=== PATIENT | male | born 1985 | race Hispanic/Latino ===

== ENCOUNTER 2021-02-10 18:03 | Emergency (ER) | payer OTHER, SELFPAY ==
--- OUTSIDE RECORDS SUMMARY | 2021-02-10 18:08 | XMS REPORT | Continuity of Care Document ---
:1985 Author Organization [facility] t Address [address] [place] [address] Dr. Daly [address] [place] [id number] Care Team Providers Name Role Phone Unavailable Unavailable Unavailable Problems This patient has no known problems. Allergies, Adverse Reactions, Alerts This patient has no known allergies or adverse reactions. Medications This patient has no known medications. Procedures This patient has no known procedures. Results This patient has no known results.
--- NOTE | 2021-02-10 21:45 | ER ---
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 lac on back of head. Bleeding controlled. Denies LOC. Coronavirus screen: Client denies travel out of the [place] in the last 14 days. Client presents with at least one sign or symptom that may indicate coronavirus-19. Ebola Screen: Patient negative for fever greater than or equal to 101.5 degrees Fahrenheit, and additional compatible Ebola Virus Disease symptoms Patient denies exposure to infectious person. Patient denies travel to an Ebola-affected area in the 21 days before illness onset. No symptoms or risks identified at this time. Initial Sepsis Screen: Does the patient meet any 2 criteria? No. Patient's initial sepsis screen is negative. Does the patient have a suspected source of infection? No. Patient's initial sepsis screen is negative. Risk Assessment: Do you want to hurt yourself or someone else? Patient reports no desire to harm self or others. Onset of symptoms was February 10, 2021. 18:24 Method Of Arrival: Ambulatory ca1 18:24 Acuity: JOSE ALEJANDRO 4 ca1 21:21 Complicating Factors: There are no complicating factors for this patient. zb Triage Assessment: 21:21 General: Behavior is calm, cooperative, appropriate for age. zb Historical: - Allergies: 18:26 No Known Allergies; ca1 - Home Meds: 18:26 None [Active]; ca1 - PMHx: 18:26 None; ca1 - PSHx: 18:26 None; ca1 - Immunization history:: Last tetanus immunization: < 5 years ago Flu vaccine is not up to date. - Social history:: Smoking status: Patient reports the use of cigarette tobacco products, smokes one-half pack cigarettes per day. - Family history:: not pertinent. Screenin:20 Abuse screen: Denies threats or abuse. Denies injuries from another. Nutritional zb screening: No deficits noted. Tuberculosis screening: No symptoms or risk factors identified. Fall Risk None identified. Assessment: 21:16 General: Appears in no apparent distress. comfortable. Pain: Complains of pain in right zb parietal area Pain does not radiate. Pain currently is 2 out of 10 on a pain scale. Neuro: Level of Consciousness is awake, alert, obeys commands, Oriented to person, place, time, situation, Denies weakness blurred vision numbness headache photophobia. Cardiovascular: Capillary refill < 3 seconds Patient's skin is warm and dry. Respiratory: Airway is patent Respiratory effort is even, unlabored, Respiratory pattern is regular, symmetrical. Derm: Skin is intact, is healthy with good turgor, Skin is dry, Skin is normal, Skin temperature is warm Wound noted scalp. Musculoskeletal: Range of motion: intact in all extremities. Injury Description: Laceration sustained to back of head is clean, 0.5 to 2.5 cm long, not bleeding, was sustained 4-6 hours ago. is bleeding no active bleeding noted. 21:20 Reassessment: ECP at bedside. zb Vital Signs: 18:24 BP 140 / 85; Pulse 88; Resp 16 S; Temp 97.6(TE); Pulse Ox 98% on R/A; Weight 113.4 kg ca1 (R); Height 5 ft. 8 in. (172.72 cm) (R); Pain 0/10; 18:24 Body Mass Index 38.01 (113.40 kg, 172.72 cm) ca1 ED Course: 18:04 Patient arrived in ED. as 18:25 Triage completed. ca1 18:26 Arm band placed on right wrist. ca1 20:50 Christian Thorpe MD is Attending Physician. homero 21:15 Trang Rush, MARILIA is Primary Nurse. zb 21:20 Patient has correct armband on for positive identification. Pulse ox on. NIBP on. Door zb closed. Noise minimized. 21:20 Assist provider with laceration repair on scalp that was between 2.6 to 7.5 cm using zb fran. Set up tray. Performed by Christian Thorpe MD Patient tolerated well. 21:21 Patient did not have IV access during this emergency room visit. zb Administered Medications: No medications were administered Outcome: 21:45 Discharge ordered by . homero 22:05 Patient left the ED. zb Signatures: Christian Thorpe MD MD cha Martinez, Amelia as Acob, Cheryl RN RN Trang Collins RN RN zb
--- NOTE | 2021-02-10 21:45 | EDPHYS ---
Physician Documentation [facility] Name: Holden Meraz Age: 35 yrs Sex: Male : 1985 Arrival Date: 02/10/2021 Time: 18:04 Bed 24 Private MD: GARY Physician Christian Thorpe HPI: 02/10 21:35 This 35 yrs old Male presents to ER via Ambulatory with complaints of homero Laceration To Head. 21:35 The patient has a laceration related to: working, occurred at work. The laceration(s) homero is(are) located on the right parietal area. Onset: The symptoms/episode began/occurred just prior to arrival. Associated signs and symptoms: The patient has no apparent associated signs or symptoms. The patient has not experienced similar symptoms in the past. Historical: - Allergies: 18:26 No Known Allergies; ca1 - Home Meds: 18:26 None [Active]; ca1 - PMHx: 18:26 None; ca1 - PSHx: 18:26 None; ca1 - Immunization history:: Last tetanus immunization: < 5 years ago Flu vaccine is not up to date. - Social history:: Smoking status: Patient reports the use of cigarette tobacco products, smokes one-half pack cigarettes per day. - Family history:: not pertinent. ROS: 21:35 Constitutional: Negative for fever, chills, and weight loss, Eyes: Negative for injury, homero pain, redness, and discharge, ENT: Negative for injury, pain, and discharge, Neck: Negative for injury, pain, and swelling, Cardiovascular: Negative for chest pain, palpitations, and edema, Respiratory: Negative for shortness of breath, cough, wheezing, and pleuritic chest pain, Abdomen/GI: Negative for abdominal pain, nausea, vomiting, diarrhea, and constipation, Back: Negative for injury and pain, MS/Extremity: Negative for injury and deformity, Neuro: Negative for headache, weakness, numbness, tingling, and seizure, Psych: Negative for depression, anxiety, suicide ideation, homicidal ideation, and hallucinations, Allergy/Immunology: Negative for hives, rash, and allergies, Endocrine: Negative for neck swelling, polydipsia, polyuria, polyphagia, and marked weight changes, Hematologic/Lymphatic: Negative for swollen nodes, abnormal bleeding, and unusual bruising. 21:35 : 21:35 Skin: Positive for laceration(s), of the scalp. Exam: 21:35 Constitutional: This is a well developed, well nourished patient who is awake, alert, homero and in no acute distress. Eyes: Pupils equal round and reactive to light, extra-ocular motions intact. Lids and lashes normal. Conjunctiva and sclera are non-icteric and not injected. Cornea within normal limits. Periorbital areas with no swelling, redness, or edema. ENT: Nares patent. No nasal discharge, no septal abnormalities noted. Tympanic membranes are normal and external auditory canals are clear. Oropharynx with no redness, swelling, or masses, exudates, or evidence of obstruction, uvula midline. Mucous membranes moist. Neck: Trachea midline, no thyromegaly or masses palpated, and no cervical lymphadenopathy. Supple, full range of motion without nuchal rigidity, or vertebral point tenderness. No Meningismus. Chest/axilla: Normal chest wall appearance and motion. Nontender with no deformity. No lesions are appreciated. Cardiovascular: Regular rate and rhythm with a normal S1 and S2. No gallops, murmurs, or rubs. Normal PMI, no JVD. No pulse deficits. Respiratory: Lungs have equal breath sounds bilaterally, clear to auscultation and percussion. No rales, rhonchi or wheezes noted. No increased work of breathing, no retractions or nasal flaring. Abdomen/GI: Soft, non-tender, with normal bowel sounds. No distension or tympany. No guarding or rebound. No evidence of tenderness throughout. Back: No spinal tenderness. No costovertebral tenderness. Full range of motion. Male : Normal genitalia with no discharge or lesions. Skin: Warm, dry with normal turgor. Normal color with no rashes, no lesions, and no evidence of cellulitis. MS/ Extremity: Pulses equal, no cyanosis. Neurovascular intact. Full, normal range of motion. Neuro: Awake and alert, GCS 15, oriented to person, place, time, and situation. Cranial nerves II-XII grossly intact. Motor strength 5/5 in all extremities. Sensory grossly intact. Cerebellar exam normal. Normal gait. Psych: Awake, alert, with orientation to person, place and time. Behavior, mood, and affect are within normal limits. 21:35 Head/face: Noted is a laceration(s), that is superficial, 2.54 cm(s). Vital Signs: 18:24 BP 140 / 85; Pulse 88; Resp 16 S; Temp 97.6(TE); Pulse Ox 98% on R/A; Weight 113.4 kg ca1 (R); Height 5 ft. 8 in. (172.72 cm) (R); Pain 0/10; 18:24 Body Mass Index 38.01 (113.40 kg, 172.72 cm) ca1 Laceration: 21:43 Wound Repair of 2.5cm ( 1.0in ) subcutaneous laceration to scalp. Linear shaped.. homero Distal neuro/vascular/tendon intact. Anesthesia: Local anesthetic administered with 0 mls of none. Wound prep: Simple cleansing by me. Skin closed with 3 no sutures, shelly instead Shelly using staple gun. Dressed with non-adherent dressing. Patient tolerated well. MDM: 20:50 Patient medically screened. [facility] 21:37 Data reviewed: vital signs, nurses notes. 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 Counseling: I had a detailed discussion with the patient and/or guardian regarding: the historical points, exam findings, and any diagnostic results supporting the discharge/admit diagnosis, the need for outpatient follow up, for definitive care, a family practitioner. Administered Medications: No medications were administered Disposition: 02/10/21 21:45 Discharged to Home. Impression: Laceration without foreign body of other part of head - posterior scalp. - Condition is Stable. - Discharge Instructions: Facial or Scalp Contusion, Laceration Care, Adult, Laceration Care, Adult, [id number], Facial or Scalp Contusion, [id number]. - Medication Reconciliation Form, Thank You Letter, Antibiotic Education, Prescription Opioid Use form. - Follow up: Private Physician; When: 1 week; Reason: Recheck today's complaints, Continuance of care, Re-evaluation by your physician. - Problem is new. - Symptoms have improved. Signatures: Christian Thorpe MD MD cha Acob, Cheryl, RN RN ca1 Trang Rush RN RN zb Corrections: (The following items were deleted from the chart) 22:05 21:45 02/10/2021 21:45 Discharged to Home. Impression: Laceration without foreign body zb of other part of head - posterior scalp. Condition is Stable. Discharge Instructions: Facial or Scalp Contusion, Laceration Care, Adult, Laceration Care, Adult, [id number], Facial or Scalp Contusion, [id number]-[id number]. Forms are Medication Reconciliation Form, Thank You Letter, Antibiotic Education, Prescription Opioid Use. Follow up: Private Physician; When: 1 week; Reason: Recheck today's complaints, Continuance of care, Re-evaluation by your physician. Problem is new. Symptoms have improved. homero
[2021-02-11 02:00] VITALS: BP 140/85; TEMP 97.6; O2SAT 98
== END 2021-02-10 22:05 | disposition home or self-care (01) ==
LOC: ER 18:03
PROC: 0HQ0XZZ Repair Scalp Skin, External Approach (ICD-10-PCS; principal; 2021-02-10)
DX: S01.01XA Laceration without foreign body of scalp, initial encounter (principal); Y99.0 Civilian activity done for income or pay; F17.210 Nicotine dependence, cigarettes, uncomplicated
CPT/HCPCS: 99283

== ENCOUNTER 2025-01-09 19:58 | Emergency (ER) | payer SELFPAY ==
--- OUTSIDE RECORDS SUMMARY | 2025-01-09 20:01 | XMS REPORT | Continuity of Care Document ---
Author Name Unknown Address [address] [facility] [address] [place] [address] [employer] Address [address] [place] [address] [address] [place] [address] Care Team Providers Care Hand Marker Name Role Phone Rolando Vazquez Attending Clinician Unavailable Payers Payer Name Policy Type Policy Number Effective Date Expirati on Date Source [place] [address] [id number] [facility] Problems Condition Name Condition Details Condition Category Status Onset Date Resolution Date Last Treatment Date Treating Clinician Comments Source Tobacco dependence syndrome Tobacco abuse disorder Problem [facility] Skin sensation disturbanc e Sensation of cold in lower extremity Problem [facility] [id number] Other obesity due to excess calories Problem [facility] Problem, abnormal examinatio n Annual visit for general adult medical examinatio n with abnormal findings Problem [facility] Chronic back pain Chronic back pain Problem [facility] [id number] Tobacco use disorder Problem [facility] [id number] Other chronic pain Problem [facility] Family history of ischemic heart disease Fam hx-ischem heart disease Problem [facility] [id number] Body mass index [BMI] 37.0-37.9, adult Problem [facility] Social History Social Habit Start Date Stop Date Quantity Comments Source History of Tobacco Use Current Smoker [facility] Sex Assigned At [facility] Smoking Status Start Date Stop Date Source Current Smoker 2022-10-31 00:00:00 [facility] Medications Ordered Medication Name Filled Medication Name Start Date Stop Date Current Medication? Ordering Clinician Indication Dosage Frequency Signature (SIG) Comments Components Source Kenalog (Triamcinol one) Kenalog (Triamcinol one) 2021-11 00:00: 00 No 40mg [facility] methylPREDN ISolone 4 MG methylPREDN ISolone 4 MG 2021-11 00:00: 00 11-06 00:00 :00 No QD methylPRED NISolone 4 MG Kenalog (Triamcinol one) Kenalog (Triamcinol one) 12-26 00:00: 00 No 40mg [facility] Kenalog (Triamcinol one) Kenalog (Triamcinol one) 12-26 00:00: 00 No 40mg [facility] No Known Medications No Known Medications No [facility] Cyclobenzap rine HCl 10 MG Cyclobenzap rine HCl 10 MG No 1{table t_at_be dtime_a s_neede d} QD Cyclobenza ancelmo HCl 10 MG Vital Signs Vital Name Observation Time Observation Value Comments S ource height 2022-10-31 15:00:00 69 [in_i] Commo n [facility] weight 2022-10-31 15:00:00 261.8 [lb_av] Co mmon [facility] temperature 2022-10-31 15:00:00 97.9 [degF] Com mon [facility] bmi 2022-10-31 15:00:00 38.66 kg/m2 Comm on [facility] oximetry 2022-10-31 15:00:00 98 % Commo n [facility] respiratory rate 2022-10-31 15:00:00 17 /min [facility] blood pressure systolic 2022-10-31 15:00:00 136 mm[Hg] [facility] blood pressure diastolic 2022-10-31 15:00:00 79 mm[Hg] [facility] height 2022-06-22 16:20:00 69 [in_i] Commo n [facility] weight 2022-06-22 16:20:00 256 [lb_av] Comm on [facility] temperature 2022-06-22 16:20:00 97.6 [degF] Com mon [facility] bmi 2022-06-22 16:20:00 37.8 kg/m2 Commo n [facility] oximetry 2022-06-22 16:20:00 95 % Comm n [facility] respiratory rate 2022-06-22 16:20:00 16 /min [facility] blood pressure systolic 2022-06-22 16:20:00 128 mm[Hg] [facility] blood pressure diastolic 2022-06-22 16:20:00 70 mm[Hg] [facility] Encounters Start Date/Time End Date/Time Encounter Type Admission Type Attending [facility] Facility Care Department Encounter ID Source 2022-10-31 14:48:03 Outpatient VazquezSanchez araizah [facility] [id number] [facility] 2022-06-22 15:45:03 Outpatient Sanchez Vazquezh [facility] [id number] [facility] 2022-10-31 00:00:00 2022-10-31 00:00:00 OFFICE VISIT EST PT LEVEL 3 [facility] [id number] [facility] 2022-06-22 00:00:00 2022-06-22 00:00:00 PREV VISIT EST AGE 18-39 [facility] [id number] [facility]
[2025-01-09] MEDS ORDERED: NA CHLORIDE 0.9% 1,000 ML ONE (20:30)
[2025-01-09 20:35] LABS: Absolute Eosinophils 0.4 K/uL (0-0.5); Absolute Lymphocytes (CBC) 2.6 K/uL (0.7-4.9); Absolute Monocytes 0.9 K/uL (0.1-1.3); Absolute Neutrophil 8.7 K/uL (1.8-8.0); Basophils % 0.4 % (0-1.3); Eosinophils % 3.3 % (0-4.4); Hematocrit 41.3 % (39.6-49.0); Lymphocytes % 20.9 % (15.3-44.8); MCH 32.6 pg (27.0-35.0); MCHC 36.4 g/dL (32.0-36.0); MCV 89.5 fL (80-100); Monocytes % 6.8 % (3.3-12.3); Neutrophils % 68.6 % (41.7-73.7); Nucleated Red Blood Cells % 0.1 % (0-0); Platelets 273 thou/uL (152-406); RBC Red Blood Cell Count 4.62 M/uL (4.33-5.43)
[2025-01-09 20:42] LABS: PT Prothrombin Time 11.3 SECONDS (9.4-12.5); Protime INR 1.08
[2025-01-09 20:59] LABS: ALT/SGPT 40 U/L (16-61); AST/SGOT 23 U/L (15-37); Albumin 3.5 g/dL (3.4-5.0); Alkaline Phosphatase 76 U/L (45-117); Anion Gap 7.7 mEq/L (5.0-15.0); BUN Blood Urea Nitrogen 13 mg/dL (7-18); Bicarbonate 28 mEq/L (21-32); Bilirubin Total 0.4 mg/dL (0.2-1.0); Globulin 3.6 g/dL (2.3-3.5); Glomerular Filtration Rate 114 ml/min (=/>90); Glucose Level 138 mg/dL (74-106); NT PRO-BNP 66 pg/mL (<125); Potassium 3.7 mEq/L (3.5-5.1); Protein, Total 7.1 g/dL (6.4-8.2); Sodium Level 138 mEq/L (136-145)
[2025-01-09 21:03] LABS: Bilirubin Direct < 0.2 mg/dL (0-0.2); Bilirubin Indirect, Calculated 0.2 mg/dL (0.2-0.8)
--- NOTE | 2025-01-09 21:12 | RAD REPORT ---
EXAMINATION: ONE VIEW CHEST XR CLINICAL INDICATION: CHEST PAIN TECHNIQUE: Frontal chest projection is submitted. Examination is limited by patient positioning and t echnique. COMPARISON: No prior exam. FINDINGS: The lungs are well inflated and clear. The heart is upper limit of normal in size. No displaced fract ures identified. IMPRESSION: No acute intrathoracic abnormalities.
--- NOTE | 2025-01-09 21:30 | RAD REPORT ---
EXAM: CTA of the chest, abdomen and pelvis HISTORY: Chest pain and back pain chest pain COMPARISON: None TECHNIQUE: Multiple contiguous axial images were obtained a CTA of the chest and abdomen with contras t per aortic dissection protocol. This involves 3D reconstructions, MIPs, volume rendered images and/or shaded surface rendering. One or more of the following dose reduction techniques were used: Au tomated exposure control, adjustment of the mA and/or kV according to patient size, and/or iterative reconstruction. Unless otherwise specified, incidental findings do not require dedicated im aging follow-up. Sagittal and coronal 3-D MIP reformats were performed. FINDINGS: PULMONARY ARTERIES: Normal in caliber without filling defects to suggest pulmonary emboli. ASCENDING THORACIC AORTA: Normal caliber without evidence of dissection or aneurysmal dilatation. DESCENDING THORACIC AORTA: Normal caliber without evidence of dissection or aneurysmal dilatation. ABDOMINAL AORTA: Normal caliber without evidence of dissection or aneurysmal dilatation. CELIAC TRUNK: Patent. SMA: Patent NUNU: Patent RENAL ARTERIES: Bilateral single renal arteries without significant atherosclerotic disease. MEDIASTINUM: No hilar or mediastinal lymphadenopathy. LUNGS: No focal infiltrates or masses. PLEURAL SPACE: No pleural effusion or pneumothorax. LIVER: Mild fatty liver.. SPLEEN: Unremarkable. PANCREAS: Unremarkable. KIDNEYS: Unremarkable. ADRENALS: Unremarkable. BOWEL: Mild sigmoid diverticulosis coli without diverticulitis.. RETROPERITONEUM: No lymphadenopathy. BONES: Unremarkable ADDITIONAL FINDINGS: IMPRESSION: No evidence of thoracic or abdominal aortic aneurysm or dissection.
--- NOTE | 2025-01-10 00:25 | ER ---
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 ap3 patient also reports feeling palpitations. patient states his pain is currently a 7/10 on the pain scale. Coronavirus screen: At this time, the client does not indicate any symptoms associated with coronavirus-19. Ebola Screen: No symptoms or risks identified at this time. Initial Sepsis Screen: Does the patient meet any 2 criteria? No. Patient's initial sepsis screen is negative. Does the patient have a suspected source of infection? No. Patient's initial sepsis screen is negative. Risk Assessment: Do you want to hurt yourself or someone else? Patient reports no desire to harm self or others. Onset of symptoms is unknown. 20:16 Method Of Arrival: Ambulatory ap3 20:16 Acuity: JOSE ALEJANDRO 2 ap3 Triage Assessment: 20:18 General: Appears in no apparent distress. Behavior is calm, cooperative, appropriate ap3 for age. Pain: Complains of pain in chest Pain currently is 7 out of 10 on a pain scale. Pain began today. Neuro: Level of Consciousness is awake, alert, obeys commands, Oriented to person, place, time, situation. Cardiovascular: Reports chest pain, Patient's skin is warm and dry. Respiratory: Airway is patent Respiratory effort is even, unlabored, Respiratory pattern is regular, symmetrical. Historical: - Allergies: 20:17 No Known Allergies; ap3 - Home Meds: 20:17 None [Active]; ap3 - PMHx: 20:17 None; ap3 - Immunization history:: Client reports receiving the 2nd dose of the Covid vaccine, Flu vaccine is not up to date. - Infectious Disease History:: Denies. - Social history:: Smoking status: Patient/guardian denies using tobacco, Stopped _ months ago 2. - Family history:: not pertinent. Screenin:19 [facility] ED Fall Risk Assessment (Adult) History of falling in the last 3 months, ap3 including since admission No falls in past 3 months (0 pts) Confusion or Disorientation No (0 pts) Intoxicated or Sedated No (0 pts) Impaired Gait No (0 pts) Mobility Assist Device Used No (0 pt) Altered Elimination No (0 pt) Score/Fall Risk Level 0 - 2 = Low Risk Oriented to surroundings, Maintained a safe environment, Educated pt \T\ family on fall prevention, incl call for assistance when getting out of bed, Assessed \T\ reinforced patient's understanding of fall precautions, Hourly rounding (assess needs \T\ fall precautionary measures) done, Used ambulatory aids as needed (educated on \T\ assisted with). Abuse screen: Denies threats or abuse. Nutritional screening: No deficits noted. Tuberculosis screening: No symptoms or risk factors identified. Assessment: 20:33 Reassessment: Patient and/or family updated on plan of care and expected duration. Pain br2 level reassessed. Patient is alert, oriented x 3, equal unlabored respirations, skin warm/dry/pink. General: Appears in no apparent distress. comfortable, Behavior is calm, cooperative. Pain: Complains of pain in mid-sternal area Pain does not radiate. Pain: Complains of pain in mid-sternal area. Cardiovascular: Reports chest pain, Denies lightheadedness, nausea, shortness of breath, vomiting. Respiratory: Airway is patent Respiratory effort is even, unlabored, Respiratory pattern is regular, symmetrical. 21:46 Reassessment: No changes from previously documented assessment. Patient and/or family br2 updated on plan of care and expected duration. Pain level reassessed. Patient is alert, oriented x 3, equal unlabored respirations, skin warm/dry/pink. 22:30 Reassessment: Patient and/or family updated on plan of care and expected duration. Pain br2 level reassessed. Patient is alert, oriented x 3, equal unlabored respirations, skin warm/dry/pink. Patient states feeling better. Vital Signs: 20:16 BP 181 / 102; Pulse 83; Resp 18; Temp 98.1; Pulse Ox 100% ; Weight 120.2 kg; Height 5 ap3 ft. 8 in. ; Pain 7/10; 21:33 BP 174 / 91; Pulse 81; Resp 18; Pulse Ox 96% ; br2 01/10 00:42 BP 133 / 82; Pulse 70; Resp 18 S; Temp 97.2(TE); Pulse Ox 99% on R/A; Pain 2/10; br2 01/09 20:16 Body Mass Index 40.29 (120.20 kg, 172.72 cm) ap3 01/09 20:16 Pain Scale: Adult ap3 01/10 00:42 Pain Scale: Adult br2 [place] Coma Score: 06:36 Eye Response: spontaneous(4). Motor Response: obeys commands(6). Verbal Response: sp4 oriented(5). Total: 15. ED Course: 01/09 20:01 Patient arrived in ED. gm2 20:07 Bandar Covarrubias MD is Attending Physician. sp4 20:17 Triage completed. ap3 20:19 Arm band placed on right wrist. ap3 20:19 Patient maintains SpO2 saturation greater than 95% on room air. ap3 20:20 EKG done, by ED staff, reviewed by Bandar Covarrubias MD. ap3 20:26 Gertrudis Hutchins, RN is Primary Nurse. br2 20:27 Basic Metabolic Panel Sent. br2 20:27 LFT's Sent. br2 20:27 CBC with Diff Sent. br2 20:28 Magnesium Sent. br2 20:28 NT PRO-BNP Sent. br2 20:28 PT-INR Sent. br2 20:28 Troponin HS Sent. br2 20:33 Inserted saline lock: 20 gauge in left antecubital area, using aseptic technique. Blood br2 collected. Flushed with 10 mL NS. 21:00 XRAY Chest (1 view) In Process Unspecified. EDMS 21:15 CT Aorta for Dissection In Process Unspecified. EDMS 01/10 00:23 Manpreet Saenz MD is Referral Physician. sp4 00:43 No provider procedures requiring assistance completed. IV discontinued, intact, br2 bleeding controlled, No redness/swelling at site. Pressure dressing applied. 00:44 Patient has correct armband on for positive identification. Provided Education on: br2 discharge instructions. Client placed on continuous cardiac and pulse oximetry monitoring. NIBP monitoring applied. Administered Medications: 01/09 20:32 Drug: NS 0.9% IV 1000 ml IV at 1 bolus Per protocol; to be given as a bolus over 60 br2 minutes Route: IV; Rate: 1 bolus; Site: left antecubital; 21:35 Follow up: IV Status: Completed infusion; IV Intake: 1000ml br2 Intake: 21:35 IV: 1000ml; Total: 1000ml. br2 Outcome: 01/10 00:24 Discharge ordered by . sp4 00:43 Discharged to home ambulatory, br2 00:43 Condition: improved 00:43 Discharge instructions given to patient, Instructed on discharge instructions, follow up and referral plans. Demonstrated understanding of instructions, follow-up care, medications, Prescriptions given X 2, 00:45 Patient left the ED. br2 Signatures: Dispatcher [employer] EDMS Hannah Auguste RN RN ap3 Bandar Covarrubias MD MD sp4 Angela Albrecht gm2 Gertrudis Hutchins RN RN br2
--- NOTE | 2025-01-10 00:25 | EDPHYS ---
Physician Documentation [facility] Name: Holden Meraz Age: 39 yrs Sex: Male : 1985 Arrival Date: 01/09/2025 Time: 19:58 Bed DX3 Private MD: ED Physician Bandar Covarrubias HPI: 01/09 20:07 This 39 yrs old Male presents to ER via Unassigned with complaints of Chest sp4 Pain. 01/10 20:13 This is a very pleasant 39-year-old male who presents with acute onset of nonexertional sp4 chest pain. Also reports that for the past 2 months he experienced some irregularity in his heartbeat. The pain today described as midsternal pressure. Patient reports that he is not on any medications at home. There is no prior history of any other medical problems such as hypertension or diabetes. Patient denied exertional chest pains. . Historical: - Allergies: 01/09 20:17 No Known Allergies; ap3 - Home Meds: 20:17 None [Active]; ap3 - PMHx: 20:17 None; ap3 - Immunization history:: Client reports receiving the 2nd dose of the Covid vaccine, Flu vaccine is not up to date. - Infectious Disease History:: Denies. - Social history:: Smoking status: Patient/guardian denies using tobacco, Stopped _ months ago 2. - Family history:: not pertinent. ROS: 01/10 20:13 Constitutional: Negative for fever, chills, and weight loss, positive for chest sp4 pressure and palpitations All other systems are negative, Exam: 06:36 Constitutional: This is a well developed, well nourished patient who is awake, alert, sp4 and in no acute distress. Head/Face: Normocephalic, atraumatic. Eyes: Pupils equal round and reactive to light, extra-ocular motions intact. Lids and lashes normal. Conjunctiva and sclera are not injected. Cornea within normal limits. Periorbital areas with no swelling, redness, or edema. ENT: Nares patent. No nasal discharge, no septal abnormalities noted. Tympanic membranes are normal and external auditory canals are clear. Oropharynx with no redness, swelling, or masses, exudates, or evidence of obstruction, uvula midline. Mucous membranes moist. Neck: Trachea midline, no thyromegaly or masses palpated, and no cervical lymphadenopathy. Supple, full range of motion without nuchal rigidity, or vertebral point tenderness. Chest/axilla: Normal chest wall appearance and motion. Nontender with no deformity. No lesions are appreciated. Cardiovascular: Regular rate and rhythm with a normal S1 and S2. No gallops, murmurs, or rubs. Normal PMI, no JVD. No pulse deficits. Respiratory: Lungs have equal breath sounds bilaterally, clear to auscultation and percussion. No rales, rhonchi or wheezes noted. No increased work of breathing, no retractions or nasal flaring. Abdomen/GI: Soft, with normal bowel sounds. No distension or tympany. No guarding or rebound. No evidence of tenderness throughout. Back: No spinal tenderness. No costovertebral tenderness. Skin: Warm, dry with normal turgor. Normal color with no rashes, no lesions, and no evidence of cellulitis. MS/ Extremity: Pulses equal, no cyanosis. Neurovascular intact. Full, normal range of motion. Neuro: Awake and alert, GCS 15, oriented to person, place, time, and situation. Cranial nerves II-XII grossly intact. Motor strength 5/5 in all extremities. Sensory grossly intact. Psych: Awake, alert, with orientation to person, place and time. Behavior, mood, and affect are within normal limits 06:36 ECG was reviewed by the Attending Physician. EKG at 2008 normal sinus rhythm normal EKG. Vital Signs: 01/09 20:16 BP 181 / 102; Pulse 83; Resp 18; Temp 98.1; Pulse Ox 100% ; Weight 120.2 kg; Height 5 ap3 ft. 8 in. ; Pain 7/10; 21:33 BP 174 / 91; Pulse 81; Resp 18; Pulse Ox 96% ; br2 01/10 00:42 BP 133 / 82; Pulse 70; Resp 18 S; Temp 97.2(TE); Pulse Ox 99% on R/A; Pain 2/10; br2 01/09 20:16 Body Mass Index 40.29 (120.20 kg, 172.72 cm) ap3 01/09 20:16 Pain Scale: Adult ap3 01/10 00:42 Pain Scale: Adult br2 [place] Coma Score: 06:36 Eye Response: spontaneous(4). Motor Response: obeys commands(6). Verbal Response: sp4 oriented(5). Total: 15. MDM: 01/09 20:08 Medical Screening Exam initiated sp4 01/10 20:13 Differential diagnosis: acute pericarditis, chest wall pain, esophagitis, gastritis, sp4 gastroesophageal reflux disease (GERD), hiatal hernia. HEART Score: History: Moderately Suspicious (1), ECG: Normal (0), Age: < or = 45 years (0), Risk Factors: No Risk Factors Known (0), Troponin: < or = 1 x Normal Limit (0), Total Score = 1. Data reviewed: vital signs, nurses notes, old medical records, lab test result(s), EKG, radiologic studies, CT scan. 20:17 ED course: X-ray revealed no acute intrathoracic abnormality. CT angiography revealed sp4 no signs of aortic dissection and no other abnormality.. Patient at this time is stable for discharge home. Second troponin is negative. Patient advised to see Dr. Saenz with cardiology for outpatient stress test and echocardiogram. 20:18 ED course: Was also prescribed 81 mg aspirin daily and atorvastatin 40 mg daily. 4 01/09 20:09 Order name: Basic Metabolic Panel; Complete Time: 22:06 [facility] 01/09 20:09 Order name: CBC with Diff; Complete Time: 22:06 [facility] 01/09 20:09 Order name: LFT's; Complete Time: 22:06 [facility] 01/09 20:09 Order name: Magnesium; Complete Time: 22:06 [facility] 01/09 20:09 Order name: NT PRO-BNP; Complete Time: 22:06 [facility] 01/09 20:09 Order name: PT-INR; Complete Time: 22:06 [facility] 01/09 20:09 Order name: Troponin HS; Complete Time: 22:06 [facility] 01/09 20:39 Order name: C-Reactive Protein; Complete Time: 22:06 [facility] 01/09 20:39 Order name: T4 Free; Complete Time: 22:06 [facility] 01/09 20:39 Order name: Thyroid Stimulating Hormone; Complete Time: 22:06 [facility] 01/09 22:06 Order name: Troponin High Sensitivity; Complete Time: 00:21 [facility] 01/09 20:09 Order name: XRAY Chest (1 view); Complete Time: 22: sp4 01/09 20:15 Order name: CT Aorta for Dissection; Complete Time: 22: sp4 01/09 20:09 Order name: EKG; Complete Time: 20: sp4 01/09 20:09 Order name: Cardiac monitoring; Complete Time: : sp4 01/09 20:09 Order name: EKG - Nurse/Tech; Complete Time: : sp4 01/09 20:09 Order name: IV Saline Lock; Complete Time: : sp4 01/09 20:09 Order name: Labs collected and sent; Complete Time: : sp4 01/09 20:09 Order name: O2 Per Protocol; Complete Time: : sp4 01/09 20:09 Order name: O2 Sat Monitoring; Complete Time: : EC/20 20:09 Rate is 85 beats/min. Rhythm is regular, Normal Sinus Rhythm. QRS [place] is Normal. [place] sp4 interval is normal. QRS interval is normal. QT interval is normal. No Q waves. T waves are Normal. No ST changes noted. Clinical impression: Normal ECG. Interpreted by me. Reviewed by me. Administered Medications: 20:32 Drug: NS 0.9% IV 1000 ml IV at 1 bolus Per protocol; to be given as a bolus over 60 br2 minutes Route: IV; Rate: 1 bolus; Site: left antecubital; 21:35 Follow up: IV Status: Completed infusion; IV Intake: 1000ml br2 Disposition: 01/10 20:18 Chart complete. sp4 Disposition Summary: 01/10/25 00:24 Discharge Ordered Notes: Location: Home sp4 Problem: new sp4 Symptoms: have improved sp4 Condition: Stable sp4 Diagnosis - Chest pain, unspecified sp4 - Atypical chest pain sp4 Followup: sp4 - With: Manpreet Saenz MD - When: 1 week - Reason: Recheck today's complaints Discharge Instructions: - Discharge Summary Sheet sp4 - Nonspecific Chest Pain, Adult, [id number] sp4 Forms: - Patient Portal Instructions sp4 Prescriptions: - aspirin 81 mg Oral tablet, delayed release (enteric coated) - take 1 tablet ORAL route every morning; 90 tablet; Refills: 0, Product sp4 Selection Permitted - atorvastatin 40 mg Oral tablet - take 1 tablet ORAL route daily; 90 tablet; Refills: 0, Product Selection sp4 Permitted Signatures: Dispatcher [employer] EDMS Hannah Auguste RN RN ap3 Bandar Covarrubias MD MD sp4 Gertrudis Hutchins RN RN br2 Corrections: (The following items were deleted from the chart) 01/09 20:40 20:16 THYROID STIMULAT HORMONE+C.LAB.BRZ ordered. EDMS EDMS 20:40 20:16 T4 FREE+C.LAB.BRZ ordered. EDMS EDMS 20:40 20:16 C-REACTIVE PROTEIN+C.LAB.BRZ ordered. EDMS EDMS 22:07 22:07 Troponin High Sensitivity+C.LAB.BRZ ordered. EDMS EDMS
[2025-01-10 23:06] VITALS: BP 133/82; TEMP 97.2; O2SAT 99
--- NOTE | 2025-01-13 12:14 | EKG ---
Test Date: 2025-01-09 Test Time: 20:09:10 [employer]closure Paralegal: ALP MEASUREMENT RESULTS: Intervals: Rate: 85 WA: 156 QRSD: 82 QT: 358 QTc: 426 [place]: P: 68 WA: 156 QRS: 12 T: 55 INTERPRETIVE STATEMENTS: Normal sinus rhythm Low voltage QRS Borderline ECG No previous ECG available for comparison Electronically Signed On 01-13-25 12:11:32 PROCESSING ASSISTANT by Royer Mendoza
== END 2025-01-10 00:45 | disposition home or self-care (01) ==
LOC: ER 19:58
DX: R07.89 Other chest pain (principal); Z87.891 Personal history of nicotine dependence
CPT/HCPCS: 36415; 71045; 71275; 74175; 80048; 80076; 83735; 83880; 84439; 84443; 84484; 85025; 85610; 86140; 93005; 96360; 99284; J7030; Q9967